=== PATIENT | female | born 2000 | race Asian ===

== ENCOUNTER 2019-11-30 21:54 | Emergency (ER) | payer SELFPAY ==
[2019-11-30] MEDS ORDERED: Lactated Ringers 1,000 ML IV ONE (23:06)
--- NOTE | 2019-11-30 23:06 | EDM.PDOC ---
ED HPI GENERAL MEDICAL PROBLEM - General Chief Complaint: COOK RELIEF Problem Stated Complaint: BLEEDING Time Seen by Provider: 11/30/19 22:00 Source of Information: Reports: Patient History Limitations: Reports: No Limitations - History of Present Illness INITIAL COMMENTS - FREE TEXT/NARRATIVE: The 19-year-old without significant past medical history who presents with vaginal bleeding. Symptoms started abruptly at approximately 8 PM this evening while doing dishes. She did have some vaginal spotting 8 days ago. She does not believe that she is . She is having some crampy, midline lower abdominal pain. She has no known coagulopathy. 1 prior vaginal delivery. lower abd pain Pain Score (Numeric/FACES): 4 middle lower back Pain Score (Numeric/FACES): 4 - Related Data Allergies Allergy/AdvReac Type Severity Reaction Status Date / Time No Known Allergies Allergy Verified 11/30/19 22:01 Home Meds: Home Meds NK [No Known Home Meds] 11/30/19 [History] ED ROS GENERAL - Review of Systems Review Of Systems: See Below Constitutional: Reports: No Symptoms HEENT: Reports: No Symptoms Respiratory: Reports: No Symptoms Cardiovascular: Reports: No Symptoms Endocrine: Reports: No Symptoms GI/Abdominal: Reports: No Symptoms : Reports: Other (vaginal bleeding) Musculoskeletal: Reports: No Symptoms Skin: Reports: No Symptoms Neurological: Reports: No Symptoms Psychiatric: Reports: No Symptoms Hematologic/Lymphatic: Reports: No Symptoms Immunologic: Reports: No Symptoms ED EXAM - Physical Exam Exam: See Below Exam Limited By: Language Barrier General Appearance: Alert, No Apparent Distress Ears: Normal External Exam Nose: Normal Inspection Throat/Mouth: Normal Inspection Head: Atraumatic Neck: Normal Inspection Respiratory/Chest: Lungs Clear Cardiovascular: Regular Rate, Rhythm GI/Abdominal Exam: Soft, Non-Tender (Female) Exam: Other (diffuse vaginal bleed, cervical os briefly visualized, appears open with expelled products on conception) Back Exam: Normal Inspection Extremities: Normal Inspection Neurological: Alert, Oriented Psychiatric: Normal Affect, Normal Mood Skin Exam: Warm, Dry Course - Vital Signs Last Recorded V/S: Last Vital Signs Temp 36.3 C 11/30/19 22:06 Pulse 93 11/30/19 23:03 Resp 14 11/30/19 23:03 BP 121/69 11/30/19 23:03 Pulse Ox 100 11/30/19 23:03 - Orders/Labs/Meds Orders: Active Orders 24 hr Category Date Time Status OB 1st Tri Sgl 1st Gest [US] Stat Exams 11/30/19 22:33 Ordered ABO/RH TYPE [BBK] Stat Lab 11/30/19 22:51 Results PATIENT RETYPE [BBK] Stat Lab 11/30/19 22:51 Results Lactated Ringers [Ringers, Lactated] 1,000 ml Med 11/30/19 23:06 Active IV BOLUS Medication Orders Lactated Ringer's (Ringers, Lactated) 1,000 mls @ 1,000 mls/hr IV BOLUS ONE Stop: 12/01/19 00:05 Labs: Laboratory Tests 11/30/19 11/30/19 11/30/19 Range/Units 22:10 22:10 22:34 WBC 8.3 (4.5-11.0) K/uL RBC 4.41 (3.30-5.50) M/uL Hgb 10.0 L (12.0-15.0) g/dL Hct 32.3 L (36.0-48.0) % MCV 73 L (80-98) fL MCH 23 L (27-31) pg MCHC 31 L (32-36) % Plt Count 247 (150-400) K/uL PT 10.9 (9.5-12.0) sec INR 1.01 (0.80-1.20) HCG, Qual Positive H HCG, Quant (0-6) mIU/mL Blood Type 11/30/19 11/30/19 Range/Units 22:35 22:51 WBC (4.5-11.0) K/uL RBC (3.30-5.50) M/uL Hgb (12.0-15.0) g/dL Hct (36.0-48.0) % MCV (80-98) fL MCH (27-31) pg MCHC (32-36) % Plt Count (150-400) K/uL PT (9.5-12.0) sec INR (0.80-1.20) HCG, Qual HCG, Quant 97787 H (0-6) mIU/mL Blood Type AB POSITIVE Meds: Medications Generic Name Dose Route Start Last Admin Trade Name Freq PRN Reason Stop Dose Admin Lactated Ringer's 1,000 mls @ 1,000 mls/hr 11/30/19 23:06 Ringers, Lactated IV 12/01/19 00:05 BOLUS ONE - Re-Assessments/Exams Free Text/Narrative Re-Assessment/Exam: 19-year-old with heavy vaginal bleeding. Vitals stable on arrival. Initial labs significant for hemoglobin of 10 and positive hCG. IV access was established. Pelvic exam revealed heavy vaginal bleeding, was briefly able to visualize the os and there did appear to be products of conception. FAST exam was performed of the abdomen and was negative for free fluid. Patient is showing some downtrending BP, bolused 1 L IV fluids. Second IV is being obtained. Type and cross is pending. Ultrasound is in the room. Anticipate we will be consulting OB in [place] for transfer 11/30/19 23:18 Free Text/Narrative Re-Assessment/Exam: Ultrasound consistent with likely incomplete . No IUP. No ectopic. BPs remain stable after 1 L of NS. Patient is Rh+, no need for RhoGam administration. We are transferring her via ALS to [place] for OB consultation. 11/30/19 23:51 Departure - Departure Time of Disposition: 23:54 Disposition: DC/Tfer to [facility] 02 Clinical Impression: Incomplete - Discharge Information *PRESCRIPTION DRUG MONITORING PROGRAM REVIEWED*: No *COPY OF PRESCRIPTION DRUG MONITORING REPORT IN PATIENT CON: No Referrals: PCP,None [Primary Care Provider] - Forms: ED Department Discharge Critical Care Note - Critical Care Note Total Time (mins): 30 Comments: 30 minutes of CC time spend investigating possible life threatening obstetrical hemorrhage. This time included pelvic exam for hemorrhage control, FAST exam, IV fluid resuscitation, discussion with consultants. Sepsis Event Note - Evaluation Sepsis Screening Result: No Definite Risk - Focused Exam Vital Signs: Vital Signs Temp Pulse Resp BP Pulse Ox 11/30/19 23:03 93 14 121/69 100 11/30/19 22:06 36.3 C 88 14 141/85 H 100 11/30/19 22:02 36.3 C 88 14 141/85 H 100 Date Exam was Performed: 11/30/19 Time Exam was Performed: 23:51 - My Orders Last 24 Hours: My Active Orders 11/30/19 22:33 OB 1st Tri Sgl 1st Gest [US] Stat 11/30/19 22:51 ABO/RH TYPE [BBK] Stat PATIENT RETYPE [BBK] Stat 11/30/19 23:06 Lactated Ringers [Ringers, Lactated] 1,000 ml IV BOLUS - Assessment/Plan Last 24 Hours: My Active Orders 11/30/19 22:33 OB 1st Tri Sgl 1st Gest [US] Stat 11/30/19 22:51 ABO/RH TYPE [BBK] Stat PATIENT RETYPE [BBK] Stat 11/30/19 23:06 Lactated Ringers [Ringers, Lactated] 1,000 ml IV BOLUS
--- NOTE | 2019-12-01 00:30 | CRLUS ---
INDICATION: , vaginal bleeding. TECHNIQUE: Real-time grayscale images were obtained transabdominally with static images saved for review. COMPARISON: None FINDINGS: Uterus: 8.4 x 4.1 x 5.4 cm. Normal echotexture of the myometrium. No masses. Endometrium: Endometrial thickness measures 10 mm. Hypoechoic material throughout the endometrial cavity without internal vascularity. Distension of the endocervical canal as well with hypoechoic avascular material. Right ovary: 3.0 x 2.3 x 2.7 centimeters. Normal echogenicity and blood flow without focal lesion. Left ovary: 3.3 x 2.0 x 3.0 centimeters. Normal echogenicity and blood flow without focal lesion. Cul-de-sac: No significant free fluid. IMPRESSION: of uncertain location. No intrauterine gestation identified. Considering the hypoechoic material in the endometrial cavity and endocervical canal consistent with hematoma, suspect miscarriage although technically a normal early would still be a consideration. Ectopic not excluded although none is seen on this exam. Correlation with serial quantitative HCG and follow-up ultrasound in 7-10 days suggested. Dictated by Tyrese Aguilar MD @ Dec 01 2019 12:23AM Signed by Dr. Tyrese Aguilar @ Dec 01 2019 12:28AM
== END 2019-12-01 00:11 ==
LOC: JP.ED 21:56
DX: O03.4 Incomplete spontaneous abortion without complication (principal)
CPT/HCPCS: 36415; 76801; 84702; 84703; 85027; 85610; 86900; 86901; 96360; 99285; J7120